=== PATIENT | female | born 1965 | race Caucasian/White ===

== ENCOUNTER → 2024-03-04 14:37 | Outpatient (REF) | payer BC, SELFPAY | LOC: WDC 14:37 | PROVIDERS: ATTENDING PHYSICIAN Obstetrics & Gynecology; FAMILY PHYSICIAN Internal Medicine | DX: Z12.31 Encounter for screening mammogram for malignant neoplasm of breast (principal) | CPT/HCPCS: 77063; 77067 ==

== ENCOUNTER → 2024-04-29 10:34 | Outpatient (REF) | payer BC, SELFPAY | LOC: RAD 10:34 | PROVIDERS: ATTENDING PHYSICIAN Internal Medicine; REFERRING PHYSICIAN Nurse Practitioner Adult Health | DX: M79.674 Pain in right toe(s) (principal) | CPT/HCPCS: 73660 ==

== ENCOUNTER → 2024-07-29 10:08 | Outpatient (REF) | payer BC, SELFPAY | LOC: EMG 10:08 | PROVIDERS: ATTENDING PHYSICIAN Physical Medicine & Rehabilitation; FAMILY PHYSICIAN Plastic Surgery | DX: M43.17 Spondylolisthesis, lumbosacral region (principal); R29.898 Other symptoms and signs involving the musculoskeletal system; M48.061 Spinal stenosis, lumbar region without neurogenic claudication | CPT/HCPCS: 95886; 95909 ==

== ENCOUNTER → 2024-08-15 11:57 | Outpatient (REF) | payer BC, SELFPAY | LOC: RCS 11:57 | PROVIDERS: ATTENDING PHYSICIAN Physical Medicine & Rehabilitation; FAMILY PHYSICIAN Internal Medicine | DX: Z01.818 Encounter for other preprocedural examination (principal) | CPT/HCPCS: 93005 ==

== ENCOUNTER → 2024-09-24 06:57 | Outpatient (REF) | payer BC, SELFPAY | LOC: HWRAD 06:57 | PROVIDERS: ATTENDING PHYSICIAN Nurse Practitioner Adult Health | DX: R10.31 Right lower quadrant pain (principal) | CPT/HCPCS: 76700 ==